=== PATIENT | female | born 1985 | race Caucasian/White ===

== ENCOUNTER 2018-04-11 13:17 | Emergency (ER) | payer MEDICAID ==
[2018-04-11 13:31] VITALS: BP 110/74
[2018-04-11] MEDS ORDERED: IBUPROFEN 200 MG TAB PO ONE (13:43)
--- NOTE | 2018-04-11 13:56 | EDPHY ---
H & P Time Seen by Provider: 04/11/18 13:48 HPI/ROS: Chief complaint: Pain to the left mandible HPI: This is a previously healthy 33-year-old female who developed a URI some 2 weeks ago. At that time she had nasal blockage common a drainage, and a mild cough. Over the weeks she has also had left ear pain has been getting progressively worse. In point of fact it is pain overlying the vicinity of the coronoid process on the left. It is worse when she chews and opens her mouth wide. She has had no change in hearing in there has been no discharge from the ear. Her balance has been normal. She has had no nausea or vomiting. There has been no sore throat. She has not noted any adenopathy or preauricular adenopathy ROS: Constitutional - no fevers or chills. Eyes - no discharge, or injection ENT - no earache, change in hearing, difficulty swallowing, sore throat. Respiratory - No Shortness of breath, phlegm, wheezing or pleuritic chest pain. The cough is dry Integument - no rashes. Neurological - no headache, numbness, tingling, or paresthesias. No focal motor weakness. Immunological - no swelling or lymphadenopathy 10 point ROS otherwise negative Smoking Status: Never smoked Physical Exam: Gen: Well developed, well nourished. Nontoxic. afebrile VSS HEENT: Membranes moist. No foul odor. There is no trismus. There is no drainage within the mouth nor pointing at the alveolar ridge. . There is moderate dental decay as she is missing the 1st molar on the left lower. Furthermore the 2nd molar on the upper left has a deep carrying within it and is tender to palpation though there is no erythema or swelling to the alveolar ridge and there is no discharge. Submandibular adenopathy is not noted. Ears: TMs are clear. Hearing normal. She is able to hear 2 fingers rubbed on either ear is held 2 in away Eyes: PERRL. No conjunctival injection or pallor. no jaundice. Nose: No nasal discharge. Sinuses are nontender. Throat: Membranes are moist. Oropharynx is without erythema or exudate. Normal phonation. Neck: Trachea is in the ML. No laryngeal tenderness. No adenopathy Skin: No rashes Constitutional: Initial Vital Signs Temperature (C) 36.7 C 04/11/18 13:28 Heart Rate 101 H 04/11/18 13:28 Respiratory Rate 16 04/11/18 13:28 Blood Pressure 110/74 04/11/18 13:28 O2 Sat (%) 96 04/11/18 13:28 O2 Delivery Mode Room Air Allergies/Adverse Reactions: No Known Allergies Allergy (Verified 04/11/18 13:32) Home Medications: Medication Instructions Recorded Levothyroxine [Synthroid 25 mcg 01/19/15 (*)] Abilify 04/11/18 Effexor Xr 04/11/18 Gabapentin 04/11/18 Ibuprofen [Motrin (*)] 400 mg PO QID #21 tab 04/11/18 Lorazepam PRN 04/11/18 Penicillin V Potassium 500 mg PO QID #40 tablet 04/11/18 busPIRone 04/11/18 Medical Decision Making ED Course/Re-evaluation: She has no signs of otitis to explain the area of pain in the side of the head that goes down to the mandible. There is no submandibular adenopathy or tenderness to biting of the tongue blade on the left. However the carious tooth on the upper left is tender to palpation and percussion. Differential Diagnosis: Diagnostic considerations include, but are not limited to, the following: URI, sinusitis, pharyngitis, otitis media, pneumonia, allergy, influenza, strep throat, dental abscess, facial abscess, facial cellulitis, Jose Daniel's Angina, Retropharyngeal abscess, deep space facial infection, dental caries. Departure - Departure Disposition: Home, Routine, Self-Care Clinical Impression: Pain, dental, Dental caries, Abscess, dental Condition: Good Instructions: Dental Abscess (ED) Additional Instructions: Filled the prescription for the antibiotics to make the dental pain go away Tylenol and Advil works well together the combination: Tylenol 650 mg and Advil 400 mg every 6 hours Referrals: [facility] [Other] - As per Instructions Stand Alone Forms: Work Excuse Prescriptions: Ibuprofen [Motrin (*)] 400 mg PO QID #21 tab Penicillin V Potassium 500 mg PO QID #40 tablet
== END 2018-04-11 14:00 | disposition home or self-care (01) ==
LOC: CED 13:17
DX: K04.7 Periapical abscess without sinus (principal); K02.9 Dental caries, unspecified